=== PATIENT | male | born 1975 | race Caucasian/White ===

== ENCOUNTER 2021-06-01 11:23 | Inpatient (IN) ==
[2021-06-01] MEDS: Nicotine 21 MG PATCH.TD24 TD SCH (13:12)
[2021-06-01 14:26] LABS: Influenza A PCR Negative (Negative); Influenza B PCR Negative (Negative); Resp. Syncytial Virus PCR Negative (Negative)
[2021-06-01 15:31] LABS: SARS-CoV-2 by PCR (In House) Negative (Negative)
[2021-06-01] MEDS ORDERED: Acetaminophen 325 MG TABLET PO PRN (16:10)
[2021-06-01] MEDS ORDERED: Haloperidol Lactate 5 MG/ML VIAL IM PRN (16:10)
[2021-06-01] MEDS ORDERED: haloperidoL 5 MG TABLET PO PRN (16:10)
[2021-06-01] MEDS ORDERED: *HR* LORazepam 1 MG TABLET PO PRN (16:10)
[2021-06-01] MEDS ORDERED: MOM Conc 10 ML UD.LIQ PO PRN (16:10)
[2021-06-01] MEDS ORDERED: *HR* LORazepam 2 MG/ML VIAL IM PRN (16:10)
[2021-06-01] MEDS ORDERED: Mag Hydrox/Al Hydrox/Simeth 30 ML UDC PO PRN (16:10)
[2021-06-01] MEDS: hydrOXYzine pamoate 25 MG CAPSULE PO PRN (18:11)
[2021-06-01] MEDS: traZODone 50 MG TABLET PO PRN (21:00)
[2021-06-02] MEDS: Cholecalciferol (D-3) 1,000 UNIT (25MCG) TABLET PO SCH (09:03)
[2021-06-02] MEDS: Nicotine 21 MG PATCH.TD24 TD SCH (09:04)
[2021-06-02] MEDS: traZODone 50 MG TABLET PO PRN (21:06)
[2021-06-03] MEDS: Nicotine 21 MG PATCH.TD24 TD SCH (08:39)
[2021-06-03] MEDS: Cholecalciferol (D-3) 1,000 UNIT (25MCG) TABLET PO SCH (08:40)
[2021-06-03] MEDS: hydrOXYzine pamoate 25 MG CAPSULE PO PRN (08:43)
[2021-06-03] MEDS: ARIPiprazole 5 MG TABLET PO SCH ×2 (13:30→21:29)
[2021-06-03] MEDS: traZODone 50 MG TABLET PO PRN (21:29)
[2021-06-04] MEDS: Nicotine 21 MG PATCH.TD24 TD SCH (08:09)
[2021-06-04] MEDS: Cholecalciferol (D-3) 1,000 UNIT (25MCG) TABLET PO SCH (08:10)
[2021-06-04] MEDS: ARIPiprazole 5 MG TABLET PO SCH (20:32)
[2021-06-04] MEDS: traZODone 50 MG TABLET PO PRN (20:32)
[2021-06-05] MEDS: Nicotine 21 MG PATCH.TD24 TD SCH (08:39)
[2021-06-05] MEDS: Cholecalciferol (D-3) 1,000 UNIT (25MCG) TABLET PO SCH (08:40)
[2021-06-05] MEDS: traZODone 50 MG TABLET PO PRN (21:15)
[2021-06-05] MEDS: ARIPiprazole 5 MG TABLET PO SCH (21:15)
[2021-06-06] MEDS: Nicotine 21 MG PATCH.TD24 TD SCH (08:29)
[2021-06-06] MEDS: Cholecalciferol (D-3) 1,000 UNIT (25MCG) TABLET PO SCH (08:30)
[2021-06-06] MEDS: ARIPiprazole 5 MG TABLET PO SCH (21:11)
[2021-06-06] MEDS: traZODone 50 MG TABLET PO PRN (21:11)
[2021-06-07] MEDS: Nicotine 21 MG PATCH.TD24 TD SCH (08:43)
[2021-06-07] MEDS: Cholecalciferol (D-3) 1,000 UNIT (25MCG) TABLET PO SCH (08:43)
[2021-06-07] MEDS: hydrOXYzine pamoate 25 MG CAPSULE PO PRN (16:07)
[2021-06-07] MEDS: ARIPiprazole 5 MG TABLET PO SCH (21:06)
[2021-06-07] MEDS: traZODone 50 MG TABLET PO PRN (21:06)
[2021-06-08] MEDS: Cholecalciferol (D-3) 1,000 UNIT (25MCG) TABLET PO SCH (08:21)
[2021-06-08] MEDS: Nicotine 21 MG PATCH.TD24 TD SCH (08:21)
[2021-06-08] MEDS: ARIPiprazole 5 MG TABLET PO SCH (20:39)
[2021-06-08] MEDS: traZODone 50 MG TABLET PO PRN (20:40)
[2021-06-09] MEDS: Cholecalciferol (D-3) 1,000 UNIT (25MCG) TABLET PO SCH (08:20)
[2021-06-09] MEDS: Nicotine 21 MG PATCH.TD24 TD SCH (08:20)
[2021-06-09] MEDS: ARIPiprazole 5 MG TABLET PO SCH (20:32)
[2021-06-09] MEDS: traZODone 50 MG TABLET PO PRN (20:32)
[2021-06-10] MEDS: Cholecalciferol (D-3) 1,000 UNIT (25MCG) TABLET PO SCH (08:32)
[2021-06-10] MEDS: Nicotine 21 MG PATCH.TD24 TD SCH (08:35)
[2021-06-10] MEDS: ARIPiprazole 5 MG TABLET PO SCH (20:57)
[2021-06-10] MEDS: traZODone 50 MG TABLET PO PRN (20:57)
[2021-06-11] MEDS: Cholecalciferol (D-3) 1,000 UNIT (25MCG) TABLET PO SCH (08:24)
[2021-06-11] MEDS: Nicotine 21 MG PATCH.TD24 TD SCH (08:24)
[2021-06-11] MEDS: traZODone 50 MG TABLET PO PRN (21:01)
[2021-06-11] MEDS: ARIPiprazole 5 MG TABLET PO SCH (21:01)
[2021-06-11 21:17] VITALS: O2SAT 98
[2021-06-12] MEDS: Nicotine 21 MG PATCH.TD24 TD SCH (08:37)
[2021-06-12] MEDS: Cholecalciferol (D-3) 1,000 UNIT (25MCG) TABLET PO SCH (08:38)
[2021-06-12 09:44] VITALS: BP 105/68; PULSE 63; TEMP 98
== END 2021-06-12 10:13 | disposition home or self-care (01) | DRG 751 ==
LOC: EMEROOARM 11:23 → 1ANU 15:52
PROVIDERS: ADMIT Psychiatry & Neurology Psychiatry; ATTEND Psychiatry & Neurology Psychiatry